=== PATIENT | female | born 2000 | race Caucasian/White ===

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

== ENCOUNTER 2021-07-22 18:28 | Emergency (ER) | payer SELFPAY ==
[~2021-07-22] VITALS: Ht 160 cm; Wt 70.3 kg
[2021-07-22 18:28] VITALS: BP_SYST 105
--- NOTE | 2021-07-22 18:30 | NUR ---
BROUGHT OUT TO TRIAGE TENT AND TRIAGED.AWAITING ER AVAILABILITY
--- NOTE | 2021-07-22 19:31 | NUR ---
Per medical insurance clerk, pt LWBS.
== END 2021-07-22 19:31 | disposition left against medical advice (07) ==
LOC: SED 18:28
DX: M79.18 Myalgia, other site (principal); H92.01 Otalgia, right ear; Z53.21 Procedure and treatment not carried out due to patient leaving prior to being seen by health care provider